=== PATIENT | female | born 1970 | race Caucasian/White ===

== ENCOUNTER 2019-02-19 20:48 | Emergency (ER) | payer BC ==
[~2019-02-19] VITALS: Ht 165.1 cm; Wt 68.2 kg
[2019-02-19 21:00] VITALS: Ht 165.1 cm; Wt 68.2 kg
[2019-02-19 21:34] LABS: BASOPHILS 0 % (0-2); EOSINOPHILS 0.3 % (0-7); HEMATOCRIT 45.1 % (36.0-48.0); HEMOGLOBIN 14.8 g/dL (12-16); IMMATURE GRANULOCYTES 0.3 % (0-5); LYMPHOCYTES 13.1 % (15-50); MCH 29.3 pg (26.0-34.0); MCHC 32.8 g/dL (31.0-37.0); MCV 89.3 fL (80.0-100.0); MEAN PLATELET VOLUME 9.4 fL (7.4-10.4); MONOCYTES 6.1 % (2-11); NEUTROPHILS 80.2 % (40-80); PLATELET COUNT 246 10x3/uL (130-400); RBC 5.05 10x6/uL (4.00-5.40); RDW 13.4 % (11.5-14.5); WBC 11.6 10x3/uL (4.8-10.8)
[2019-02-19 21:43] LABS: ANION GAP 10.8 mmol/L (8-16); CALCIUM 8.6 mg/dL (8.5-10.1); CARBON DIOXIDE 27.8 mmol/L (21.0-32.0); CREATININE - SERUM 1.2 mg/dL (0.6-1.3); POTASSIUM - SERUM 3.6 mmol/L (3.5-5.1)
[2019-02-19 21:45] LABS: APPEARANCE CLEAR (CLEAR); BILIRUBIN NEGATIVE (NEGATIVE); COLOR YELLOW (YELLOW); GLUCOSE NEGATIVE (NEGATIVE); KETONE NEGATIVE (NEGATIVE); NITRITE NEGATIVE (NEGATIVE); PROTEIN TRACE mg/dL (NEGATIVE); SPECIFIC GRAVITY 1.025 (1.005-1.020); UROBILINOGEN NORMAL (NORMAL)
[2019-02-19 21:46] LABS: BACTERIA MANY /hpf (NEGATIVE); EPITHELIAL CELLS 0-5 /hpf (0-5); RED CELLS - URINE >50 /hpf (0-5); WHITE CELLS - URINE OCC /hpf (NEGATIVE)
[2019-02-19 21:50] LABS: ALBUMIN 3.3 g/dL (3.4-5.0); BILIRUBIN - TOTAL 0.22 mg/dL (0.2-1.3); PROTEIN - SERUM 7.1 g/dL (6.4-8.2)
[2019-02-19] MEDS ORDERED: LOPERAMIDE HCL2 MG PO (22:10)
[2019-02-19] MEDS ORDERED: ZOFRAN ODT4 MG/UDTAB PO (22:10)
[2019-02-19 22:26] LABS: HCG URINE NEGATIVE (NEGATIVE)
[2019-02-19 22:31] VITALS: BP 105/61
== END 2019-02-19 22:31 | disposition home or self-care (01) ==
LOC: D.ER 20:48
PROVIDERS: Family Medicine
DX: R19.7 Diarrhea, unspecified (principal)